=== PATIENT | female | born 1990 | race Native Hawaiian/Other Pacific Islander ===

== ENCOUNTER 2018-09-13 15:41 | Emergency (ER) | payer OTHER ==
[~2018-09-13] VITALS: Ht 160 cm; Wt 72.6 kg
[2018-09-13 15:56] VITALS: TEMP 98.4
[2018-09-13 16:27] LABS: PLATELET COUNT 331 K/uL (152-353)
[2018-09-13 16:35] LABS: POTASSIUM 3.9 mmol/L (3.6-5.2)
[2018-09-13 17:37] VITALS: BP 126/76
== END 2018-09-13 17:38 | disposition home or self-care (01) ==
LOC: ED 15:41
PROVIDERS: Emergency Medicine
DX: N30.80 Other cystitis without hematuria (principal); N39.0 Urinary tract infection, site not specified
CPT/HCPCS: 80053; 81000; 85027; 96372; 99283; J1885

== ENCOUNTER 2018-09-26 16:18 | Emergency (ER) | payer OTHER ==
[~2018-09-26] VITALS: Ht 160 cm; Wt 68.0 kg
[2018-09-26 16:37] VITALS: TEMP 98.1
[2018-09-26 17:42] VITALS: BP 121/64
== END 2018-09-26 17:42 | disposition home or self-care (01) ==
LOC: ED 16:18
PROC: 0HC4XZZ Extirpation of Matter from Neck Skin, External Approach (ICD-10-PCS; principal; 2018-09-26)
PROC: 0HQ4XZZ Repair Neck Skin, External Approach (ICD-10-PCS; 2018-09-26)
DX: S10.85XA Superficial foreign body of other specified part of neck, initial encounter (principal)
CPT/HCPCS: 99283

== ENCOUNTER 2018-10-24 01:04 | Emergency (ER) | payer OTHER ==
[~2018-10-24] VITALS: Ht 160 cm; Wt 68.0 kg
[2018-10-24 02:11] LABS: PLATELET COUNT 328 K/uL (152-353)
[2018-10-24 03:35] VITALS: BP 138/86; TEMP 98.3
== END 2018-10-24 03:40 | disposition home or self-care (01) ==
LOC: ED 01:04
PROVIDERS: Emergency Medicine
DX: F43.8 Other reactions to severe stress (principal)
CPT/HCPCS: 36415; 80053; 81000; 81025; 83036; 85027; 96360; 99284

== ENCOUNTER 2019-04-05 14:25 | Emergency (ER) | payer OTHER ==
[~2019-04-05] VITALS: Ht 160 cm; Wt 68.0 kg
[2019-04-05 14:30] VITALS: TEMP 98.1
[2019-04-05 15:45] VITALS: BP 133/81
== END 2019-04-05 15:45 | disposition home or self-care (01) ==
LOC: ED 14:25
DX: K42.9 Umbilical hernia without obstruction or gangrene (principal); K59.09 Other constipation
CPT/HCPCS: 81000; 81025; 99283

== ENCOUNTER 2019-04-11 13:52 | Emergency (ER) | payer OTHER ==
[~2019-04-11] VITALS: Ht 160 cm; Wt 68.0 kg
[2019-04-11 14:03] VITALS: TEMP 98.6
[2019-04-11 14:39] LABS: PLATELET COUNT 355 K/uL (152-353)
[2019-04-11 14:47] LABS: POTASSIUM 4.2 mmol/L (3.6-5.2)
[2019-04-11 17:40] VITALS: BP 124/82
== END 2019-04-11 17:40 | disposition home or self-care (01) ==
LOC: ED 13:52
PROVIDERS: Hospitalist
DX: K42.9 Umbilical hernia without obstruction or gangrene (principal); K21.9 Gastro-esophageal reflux disease without esophagitis
CPT/HCPCS: 36415; 80053; 81000; 81025; 82150; 83690; 85027; 96374; 99284; J2405; Q9963

== ENCOUNTER 2019-08-03 00:49 | Emergency (ER) | payer OTHER ==
[~2019-08-03] VITALS: Ht 160 cm; Wt 68.0 kg
[2019-08-03 02:40] VITALS: BP 108/75; TEMP 97
== END 2019-08-03 02:41 | disposition home or self-care (01) ==
LOC: ED 00:49
DX: S93.492A Sprain of other ligament of left ankle, initial encounter (principal); W22.8XXA Striking against or struck by other objects, initial encounter; Y92.512 Supermarket, store or market as the place of occurrence of the external cause
CPT/HCPCS: 99282

== ENCOUNTER 2019-08-11 01:16 | Emergency (ER) | payer OTHER ==
[~2019-08-11] VITALS: Ht 160 cm; Wt 68.0 kg
[2019-08-11 01:25] VITALS: BP 115/85; TEMP 97.3
== END 2019-08-11 02:36 | disposition home or self-care (01) ==
LOC: ED 01:16
DX: H60.8X2 Other otitis externa, left ear (principal); H92.02 Otalgia, left ear
CPT/HCPCS: 99282

== ENCOUNTER 2019-09-17 19:20 | Emergency (ER) | payer OTHER ==
[~2019-09-17] VITALS: Ht 160 cm; Wt 67.6 kg
[2019-09-17 20:12] LABS: PLATELET COUNT 342 K/uL (152-353)
[2019-09-17 20:45] LABS: POTASSIUM 3.7 mmol/L (3.6-5.2); SODIUM 136 mmol/L (136-145)
[2019-09-17 23:05] VITALS: BP 107/81; TEMP 98.3
== END 2019-09-17 23:10 | disposition home or self-care (01) ==
LOC: ED 19:20
PROVIDERS: Student in an Organized Health Care Education/Training Program
DX: R10.33 Periumbilical pain (principal); R11.2 Nausea with vomiting, unspecified; Z98.890 Other specified postprocedural states
CPT/HCPCS: 36415; 80053; 81000; 83690; 83735; 85027; 96360; 96375; 99284; J2270; J2405; Q9963

== ENCOUNTER 2019-11-11 20:18 | Emergency (ER) | payer OTHER ==
[~2019-11-11] VITALS: Ht 160 cm; Wt 68.0 kg
[2019-11-11] MEDS ORDERED: TOPAMAX25 MG (20:31)
[2019-11-11] MEDS ORDERED: ZOLOFT25 MG (20:32)
[2019-11-11] MEDS ORDERED: ADDERALL10 MG (20:32)
[2019-11-11] MEDS ORDERED: CLARITIN10 MG PO (20:32)
[2019-11-11 21:48] VITALS: BP 128/86; TEMP 98.1
== END 2019-11-11 21:48 | disposition home or self-care (01) ==
LOC: ED 20:18
DX: G43.909 Migraine, unspecified, not intractable, without status migrainosus (principal); N61.0 Mastitis without abscess
CPT/HCPCS: 96372; 99283; J1200; J1885; J2405

== ENCOUNTER 2020-03-06 16:12 | Emergency (ER) | payer OTHER ==
[~2020-03-06] VITALS: Ht 160 cm; Wt 71.7 kg
[~2020-03-06 16:12] MED LIST: ADDERALL10 MG; CLARITIN10 MG PO; TOPAMAX25 MG; ZOLOFT25 MG
[2020-03-06 16:19] VITALS: TEMP 98.9
[2020-03-06 18:38] VITALS: BP 118/72
== END 2020-03-06 18:38 | disposition home or self-care (01) ==
LOC: ED 16:12
DX: S39.81XA Other specified injuries of abdomen, initial encounter (principal); W50.1XXA Accidental kick by another person, initial encounter; Y92.828 Other wilderness area as the place of occurrence of the external cause; Z98.890 Other specified postprocedural states
CPT/HCPCS: 99283